=== PATIENT | male | born 1990 | race Caucasian/White ===

== ENCOUNTER → 2019-03-07 | Outpatient (REF) | payer OTHER | LOC: M SFHCPLAZ 17:24 | PROVIDERS: ATTEND Dermatology | DX: D49.2 Neoplasm of unspecified behavior of bone, soft tissue, and skin (principal) ==

== ENCOUNTER → 2019-08-08 | Outpatient (CLI) | payer BC ==
[2019-08-08 20:33] LABS: FREE T4 1.17 NG/DL (0.76-1.46); THYROID STIMULATING HORMONE 11.9 uIU/ML (0.358-3.740)
== END ==
LOC: M WUC 16:50
PROVIDERS: ATTEND Physician Assistant
DX: E03.9 Hypothyroidism, unspecified (principal)

== ENCOUNTER → 2019-09-09 | Outpatient (CLI) | payer BC ==
[2019-09-09 13:37] LABS: FREE T4 1.05 NG/DL (0.76-1.46); THYROID STIMULATING HORMONE 1.84 uIU/ML (0.358-3.740)
[2019-09-11 09:23] LABS: THYROID PEROXIDASE ANTIBODY 571.3 U/ML (<60.0)
== END ==
LOC: M PLALAB 10:51
PROVIDERS: ATTEND Physician Assistant
DX: E03.9 Hypothyroidism, unspecified (principal)

== ENCOUNTER → 2019-09-19 | Outpatient (REF) | payer OTHER | LOC: M LAB REF 12:57 | PROVIDERS: ATTEND Internal Medicine Endocrinology, Diabetes & Metabolism | DX: E04.1 Nontoxic single thyroid nodule (principal); E06.3 Autoimmune thyroiditis ==

== ENCOUNTER → 2019-11-05 | Outpatient (CLI) | payer OTHER ==
[2019-11-05 13:04] LABS: FREE T4 1.13 NG/DL (0.76-1.46); THYROID STIMULATING HORMONE 3.61 uIU/ML (0.358-3.740)
== END ==
LOC: M PLALAB 10:21
PROVIDERS: ATTEND Nurse Practitioner Family
DX: E06.3 Autoimmune thyroiditis (principal)

== ENCOUNTER → 2019-12-06 | Outpatient (CLI) | payer OTHER | LOC: M PLALAB 09:32 | PROVIDERS: ATTEND Allergy & Immunology Allergy | DX: T78.1XXA Other adverse food reactions, not elsewhere classified, initial encounter (principal) ==

== ENCOUNTER → 2020-02-14 | Outpatient (REF) | payer OTHER | LOC: M LAB REF 11:15 | PROVIDERS: ATTEND Urology | DX: Z30.2 Encounter for sterilization (principal) ==

== ENCOUNTER → 2020-03-05 | Outpatient (CLI) | payer OTHER ==
[2020-03-05 14:43] LABS: FREE T4 1.1 NG/DL (0.76-1.46); THYROID STIMULATING HORMONE 3.89 uIU/ML (0.358-3.740)
== END ==
LOC: M PLALAB 12:03
PROVIDERS: ATTEND Nurse Practitioner Family
DX: E06.3 Autoimmune thyroiditis (principal)

== ENCOUNTER → 2020-05-04 | Outpatient (REF) | payer OTHER ==
[2020-05-04 11:34] LABS: SEMEN APPEARANCE OPAQUE (OPAQUE); SEMEN VISCOSITY LIQUID (LIQUID); SEMEN VOLUME 4.2 ml (2.0-5.0); WBC CONCENTRATION <=1 M/ml (<=1 M/ml)
== END ==
LOC: M SMT 11:25
PROVIDERS: ATTEND Urology
DX: Z30.8 Encounter for other contraceptive management (principal)

== ENCOUNTER → 2020-08-25 | Outpatient (CLI) | payer OTHER ==
[2020-08-25 15:01] LABS: FREE T4 0.99 NG/DL (0.76-1.46); THYROID STIMULATING HORMONE 7.09 uIU/ML (0.358-3.740)
== END ==
LOC: M PLALAB 10:52
PROVIDERS: ATTEND Nurse Practitioner Family
DX: E06.3 Autoimmune thyroiditis (principal)

== ENCOUNTER → 2020-11-24 | Outpatient (CLI) | payer OTHER ==
[2020-11-24 19:29] LABS: FREE T4 1.3 NG/DL (0.76-1.46); THYROID STIMULATING HORMONE 0.163 uIU/ML (0.358-3.740)
== END ==
LOC: M PLALAB 15:34
PROVIDERS: ATTEND Internal Medicine Endocrinology, Diabetes & Metabolism
DX: E06.3 Autoimmune thyroiditis (principal)

== ENCOUNTER → 2021-02-26 | Outpatient (CLI) | payer OTHER ==
[2021-02-26 13:55] LABS: FREE T4 1.06 NG/DL (0.76-1.46); THYROID STIMULATING HORMONE 2.02 uIU/ML (0.358-3.740)
== END ==
LOC: M PLALAB 11:08
PROVIDERS: ATTEND Nurse Practitioner Family
DX: E06.3 Autoimmune thyroiditis (principal)

== ENCOUNTER → 2021-04-06 | Outpatient (CLI) | payer BC, OTHER ==
[2021-04-06 14:41] LABS: ESTRADIOL 35.3 PG/ML (<39.8); FOLLICLE STIMULATING HORMONE < 0.3 mIU/mL (1.4-18.1); LUTEINIZING HORMONE < 0.1 mIU/mL (1.5-9.3); PROGESTERONE 0.45 NG/ML (0.28-1.22)
[2021-04-07 18:09] LABS: TESTOSTERONE FREE (DIRECT) 14.6 pg/mL (8.7-25.1)
== END ==
LOC: M PLALAB 10:44
PROVIDERS: ATTEND Obstetrics & Gynecology
DX: F52.0 Hypoactive sexual desire disorder (principal); E29.1 Testicular hypofunction

== ENCOUNTER → 2021-06-03 | Outpatient (CLI) | payer BC, OTHER ==
[2021-06-03 17:31] LABS: ESTRADIOL 57.3 PG/ML (<39.8); FOLLICLE STIMULATING HORMONE < 0.3 mIU/mL (1.4-18.1); LUTEINIZING HORMONE < 0.1 mIU/mL (1.5-9.3); PROGESTERONE 0.35 NG/ML (0.28-1.22)
== END ==
LOC: M PLALAB 15:01
PROVIDERS: ATTEND Obstetrics & Gynecology
DX: F52.0 Hypoactive sexual desire disorder (principal)

== ENCOUNTER → 2021-07-13 | Outpatient (CLI) | payer BC, OTHER ==
[2021-07-13 13:28] LABS: BASO # 0.1 10^3/uL (0.0-0.2); EOS # 0.2 10^3/uL (0.0-0.5); EOS % 4.7 % (0.0-3.0); HEMATOCRIT 53.2 % (42.0-52.0); HEMOGLOBIN 17.9 g/dl (13.5-17.5); LYMPH # 1.4 10^3/uL (1.5-5.0); LYMPH % 27.4 % (24.0-44.0); MEAN CORPUSCULAR HEMOGLOBIN 30.3 pg (27.0-33.0); MEAN CORPUSCULAR HGB CONC 33.6 g/dl (32.0-36.5); MEAN CORPUSCULAR VOLUME 90.2 fl (80.0-96.0); MONO # 0.6 10^3/uL (0.0-0.8); MONO % 11.2 % (2.0-8.0); NEUTROPHILS # 2.7 10^3/uL (1.5-8.5); NEUTROPHILS % 55.5 % (36.0-66.0); PLATELET COUNT, AUTOMATED 205 10^3/uL (150-450); WHITE BLOOD COUNT 4.9 10^3/uL (4.0-10.0)
[2021-07-13 13:58] LABS: CK-MB VALUE MASS 2.1 NG/ML (<3.6); MB/CK RELATIVE INDEX 0.69 (< OR =4)
[2021-07-13 15:22] LABS: BLOOD UREA NITROGEN 16 MG/DL (7-18); CALCIUM LEVEL 9.6 MG/DL (8.5-10.1); CARBON DIOXIDE LEVEL 31 MEQ/L (21-32); CHLORIDE LEVEL 103 MEQ/L (98-107); CREATININE FOR GFR 1.17 MG/DL (0.70-1.30); FREE T4 1.14 NG/DL (0.76-1.46); GLOMERULAR FILTRATION RATE > 60.0 (>60); GLUCOSE, FASTING 88 MG/DL (70-100); POTASSIUM SERUM 4.3 MEQ/L (3.5-5.1); SODIUM LEVEL 138 MEQ/L (136-145)
== END ==
LOC: M PLALAB 10:57
PROVIDERS: ATTEND Family Medicine
DX: R07.89 Other chest pain (principal)

== ENCOUNTER → 2021-08-25 | Outpatient (CLI) | payer BC, OTHER ==
[2021-08-25 17:28] LABS: FREE T4 1.18 NG/DL (0.76-1.46); THYROID STIMULATING HORMONE 2.63 uIU/ML (0.358-3.740)
== END ==
LOC: M PLALAB 13:35
PROVIDERS: ATTEND Nurse Practitioner Family
DX: E06.3 Autoimmune thyroiditis (principal)

== ENCOUNTER → 2021-10-11 | Outpatient (REF) | payer BC, OTHER ==
[2021-10-11 13:49] LABS: ESTRADIOL 51.8 PG/ML (<39.8); FOLLICLE STIMULATING HORMONE 0.4 mIU/mL (1.4-18.1); LUTEINIZING HORMONE 0.2 mIU/mL (1.5-9.3); PROGESTERONE 0.62 NG/ML (0.28-1.22)
[2021-10-12 23:07] LABS: TESTOSTERONE FREE (DIRECT) 28.6 pg/mL (8.7-25.1)
== END ==
LOC: M LABDRWAD 12:38
PROVIDERS: ATTEND Obstetrics & Gynecology
DX: F52.0 Hypoactive sexual desire disorder (principal)

== ENCOUNTER → 2021-10-11 | Outpatient (REF) | payer BC, OTHER ==
[2021-10-11 13:40] LABS: CHOLESTEROL RISK RATIO 2.961 (<5)
== END ==
LOC: M LABDRWAD 12:37
PROVIDERS: ATTEND Family Medicine
DX: Z13.220 Encounter for screening for lipoid disorders (principal)

== ENCOUNTER → 2022-01-20 | Outpatient (CLI) | payer BC, OTHER ==
[2022-01-20 13:10] LABS: ESTRADIOL 27.5 PG/ML (<39.8); FOLLICLE STIMULATING HORMONE 0.7 mIU/mL (1.4-18.1); LUTEINIZING HORMONE 0.3 mIU/mL (1.5-9.3); PROGESTERONE 0.59 NG/ML (0.28-1.22)
== END ==
LOC: M WUC 10:20
PROVIDERS: ATTEND Obstetrics & Gynecology
DX: F52.0 Hypoactive sexual desire disorder (principal); E34.9 Endocrine disorder, unspecified; E29.1 Testicular hypofunction

== ENCOUNTER → 2022-03-07 | Outpatient (CLI) | payer OTHER, BC ==
[2022-03-07 11:10] LABS: FREE T4 1.27 NG/DL (0.76-1.46); THYROID STIMULATING HORMONE 1.58 uIU/ML (0.358-3.740)
== END ==
LOC: M WUC 08:16
PROVIDERS: ATTEND Nurse Practitioner Family
DX: E06.3 Autoimmune thyroiditis (principal)

== ENCOUNTER → 2022-10-31 | Outpatient (REF) | payer BC, OTHER ==
[2022-10-31 15:32] LABS: ALBUMIN 4.1 G/DL (3.2-5.2); ALKALINE PHOSPHATASE 64 U/L (46-116); ALT/SGPT 48 U/L (7.0-40); AST/SGOT 31 U/L (<34); BILIRUBIN,TOTAL 0.9 MG/DL (0.3-1.2); BLOOD UREA NITROGEN 13 MG/DL (9-23); CALCIUM LEVEL 9.5 MG/DL (8.5-10.1); CARBON DIOXIDE LEVEL 30 MMOL/L (20-31); CHLORIDE LEVEL 102 MMOL/L (98-107); CHOLESTEROL LEVEL 155 MG/DL (<200); CHOLESTEROL RISK RATIO 2.76 (<5); CREATININE FOR GFR 1.09 MG/DL (0.70-1.30); GLOMERULAR FILTRATION RATE > 60.0 (>60); GLUCOSE, FASTING 82 MG/DL (60-100); POTASSIUM SERUM 4.5 MMOL/L (3.5-5.1); SODIUM LEVEL 138 MMOL/L (136-145); TOTAL 25(OH) VITAMIN D 32.4 NG/ML (20.0-100.0); TOTAL PROTEIN 6.9 G/DL (5.7-8.2); TRIGLYCERIDES LEVEL 50 MG/DL (<150)
[2022-10-31 15:33] LABS: BASO # 0.1 10^3/uL (0.0-0.2); EOS # 0.4 10^3/uL (0.0-0.5); EOS % 6.7 % (0.0-3.0); HEMATOCRIT 51.8 % (42.0-52.0); LYMPH # 1.1 10^3/uL (1.5-5.0); LYMPH % 17.6 % (24.0-44.0); MEAN CORPUSCULAR HEMOGLOBIN 30.4 pg (27.0-33.0); MEAN CORPUSCULAR HGB CONC 32.8 g/dl (32.0-36.5); MEAN CORPUSCULAR VOLUME 92.7 fl (80.0-96.0); MONO # 0.7 10^3/uL (0.0-0.8); NEUTROPHILS # 3.8 10^3/uL (1.5-8.5); NEUTROPHILS % 63.5 % (36.0-66.0); PLATELET COUNT, AUTOMATED 170 10^3/uL (150-450); RED BLOOD COUNT 5.59 10^6/uL (4.30-6.10)
== END ==
LOC: M LABDRWAD 13:00
PROVIDERS: ATTEND Family Medicine
DX: Z13.29 Encounter for screening for other suspected endocrine disorder (principal); Z13.0 Encounter for screening for diseases of the blood and blood-forming organs and certain disorders involving the immune mechanism; Z13.220 Encounter for screening for lipoid disorders; E06.3 Autoimmune thyroiditis

== ENCOUNTER → 2022-10-31 | Outpatient (REF) | payer BC, OTHER ==
[2022-10-31 15:32] LABS: THYROID STIMULATING HORMONE 1.185 uIU/ML (0.55-4.78)
[2022-10-31 15:33] LABS: FREE T4 1.4 NG/DL (0.89-1.76)
== END ==
LOC: M LABDRWAD 13:02
PROVIDERS: ATTEND Nurse Practitioner Family
DX: E06.3 Autoimmune thyroiditis (principal)

== ENCOUNTER → 2023-04-24 | Outpatient (CLI) | payer BC, OTHER ==
[2023-04-24 14:08] LABS: FOLLICLE STIMULATING HORMONE < 0.3 mIU/ML (1.4-18.1)
[2023-04-24 14:09] LABS: ESTRADIOL 32.5 PG/ML (<39.8); LUTEINIZING HORMONE 0.7 mIU/ML (1.5-9.3)
[2023-04-24 14:27] LABS: PROGESTERONE 0.72 NG/ML (0.28-1.22)
[2023-04-25 23:07] LABS: TESTOSTERONE FREE (DIRECT) 14.3 pg/mL (8.7-25.1)
== END ==
LOC: M PLALAB 11:21
PROVIDERS: ATTEND Obstetrics & Gynecology
DX: F52.0 Hypoactive sexual desire disorder (principal)

== ENCOUNTER → 2023-07-31 | Outpatient (REF) | payer BC, OTHER ==
[2023-07-31 13:26] LABS: BASO % 0.7 % (0.0-1.0); EOS # 0.2 10^3/uL (0.0-0.5); EOS % 4.3 % (0.0-3.0); HEMATOCRIT 51.8 % (42.0-52.0); HEMOGLOBIN 16.9 g/dl (13.5-17.5); LYMPH # 1.1 10^3/uL (1.5-5.0); MEAN CORPUSCULAR HEMOGLOBIN 30.6 pg (27.0-33.0); MEAN CORPUSCULAR HGB CONC 32.6 g/dl (32.0-36.5); MEAN CORPUSCULAR VOLUME 93.8 fl (80.0-96.0); MONO # 0.4 10^3/uL (0.0-0.8); MONO % 9.6 % (2.0-8.0); NEUTROPHILS # 2.7 10^3/uL (1.5-8.5); NEUTROPHILS % 60.9 % (36.0-66.0); PLATELET COUNT, AUTOMATED 182 10^3/uL (150-450); RED BLOOD COUNT 5.52 10^6/uL (4.30-6.10); WHITE BLOOD COUNT 4.4 10^3/uL (4.0-10.0)
[2023-07-31 13:37] LABS: ERYTHROCYTE SEDIMENTATION RATE 10 mm/hr (0-15)
[2023-07-31 13:46] LABS: URIC ACID 5.7 MG/DL (3.7-9.2)
[2023-07-31 13:48] LABS: C REACTIVE PROTEIN QUANTITATIV < 0.40 MG/DL (<1.0)
[2023-07-31 13:49] LABS: ALKALINE PHOSPHATASE 62 U/L (46-116); ALT/SGPT 49 U/L (7.0-40); AST/SGOT 20 U/L (<34); BILIRUBIN,TOTAL 0.6 MG/DL (0.3-1.2); BLOOD UREA NITROGEN 17 MG/DL (9-23); CALCIUM LEVEL 8.9 MG/DL (8.5-10.1); CARBON DIOXIDE LEVEL 30 MMOL/L (20-31); CHLORIDE LEVEL 105 MMOL/L (98-107); CREATININE FOR GFR 1.05 MG/DL (0.70-1.30); GLOMERULAR FILTRATION RATE > 60.0 (>60); GLUCOSE, FASTING 82 MG/DL (60-100); POTASSIUM SERUM 4.5 MMOL/L (3.5-5.1); RHEUMATOID FACTOR QUANT < 3.5 IU/ML (<14); SODIUM LEVEL 139 MMOL/L (136-145); TOTAL PROTEIN 7.4 G/DL (5.7-8.2)
== END ==
LOC: M LABDRWAD 12:34
PROVIDERS: ATTEND Student in an Organized Health Care Education/Training Program
DX: M25.562 Pain in left knee (principal)

== ENCOUNTER → 2023-09-25 | Outpatient (REF) | payer OTHER ==
[2023-09-25 18:48] LABS: FOLLICLE STIMULATING HORMONE 3.5 mIU/ML (1.4-18.1)
[2023-09-25 18:49] LABS: ESTRADIOL 28.7 PG/ML (<39.8)
[2023-09-25 18:52] LABS: PROGESTERONE 0.61 NG/ML (0.28-1.22)
== END ==
LOC: M LABDRWAD 17:01
PROVIDERS: ATTEND Obstetrics & Gynecology
DX: F52.0 Hypoactive sexual desire disorder (principal); E34.9 Endocrine disorder, unspecified; E29.1 Testicular hypofunction

== ENCOUNTER → 2023-10-09 | Outpatient (CLI) | payer BC | LOC: M RAD 15:04 | PROVIDERS: ATTEND Physician Assistant | DX: N50.811 Right testicular pain (principal) ==

== ENCOUNTER → 2025-01-09 | Outpatient (CLI) | payer BC ==
[2025-01-09 14:58] LABS: FREE T4 1.63 NG/DL (0.89-1.76)
== END ==
LOC: M LABDRWAD 09:05
PROVIDERS: ATTEND Nurse Practitioner Family
DX: E06.3 Autoimmune thyroiditis (principal)

== ENCOUNTER → 2025-02-06 | Outpatient (CLI) | payer BC | LOC: M WUC 08:37 | PROVIDERS: ATTEND Nurse Practitioner Family | DX: R07.82 Intercostal pain (principal) ==

== ENCOUNTER 2025-04-03 07:17 | Emergency (ER) | payer BC ==
[~2025-04-03] VITALS: Ht 188 cm; Wt 107.6 kg
[2025-04-03] MEDS ORDERED: LEVO150T7 (07:26)
[2025-04-03] MEDS: KETOROLAC 30 MG/ML 1 ML VIAL IV ONE (07:57)
[2025-04-03 08:12] LABS: BASO # 0.0 10^3/uL (0.0-0.2); BASO % 1.0 % (0.0-1.0); EOS # 0.2 10^3/uL (0.0-0.5); EOS % 5.1 % (0.0-3.0); LYMPH # 1.3 10^3/uL (1.5-5.0); LYMPH % 31.7 % (24.0-44.0); MONO # 0.6 10^3/uL (0.0-0.8); MONO % 13.7 % (2.0-8.0); NEUTROPHILS # 2.0 10^3/uL (1.5-8.5); NEUTROPHILS % 48.3 % (36.0-66.0); PLATELET COUNT, AUTOMATED 181 10^3/uL (150-450)
[2025-04-03 08:34] LABS: CK-MB VALUE MASS 1.8 NG/ML (<3.6)
[2025-04-03 08:35] LABS: CALCIUM LEVEL 9.2 MG/DL (8.5-10.1); CARBON DIOXIDE LEVEL 28 MMOL/L (20-31); CHLORIDE LEVEL 104 MMOL/L (98-107); CREATININE FOR GFR 0.98 MG/DL (0.70-1.30); GLOMERULAR FILTRATION RATE > 90.0 (>60); POTASSIUM SERUM 4.2 MMOL/L (3.5-5.1); SODIUM LEVEL 142 MMOL/L (136-145)
[2025-04-03 08:38] LABS: CPK CREATINE PHOSPHOKINASE 262 U/L (46-171); MB/CK RELATIVE INDEX 0.68 (< OR =4)
[2025-04-03 09:25] LABS: CK-MB VALUE MASS 1.1 NG/ML (<3.6)
[2025-04-03 09:27] LABS: CPK CREATINE PHOSPHOKINASE 233.0 U/L (46-171); MB/CK RELATIVE INDEX 0.47 (< OR =4)
[2025-04-03 09:30] VITALS: BP 131/78; TEMP 97.6; O2SAT 99
== END 2025-04-03 09:43 | disposition home or self-care (01) ==
LOC: M ED 07:17
DX: M94.0 Chondrocostal junction syndrome [Tietze] (principal); R00.1 Bradycardia, unspecified; E05.80 Other thyrotoxicosis without thyrotoxic crisis or storm; F10.10 Alcohol abuse, uncomplicated; Z79.899 Other long term (current) drug therapy
CPT/HCPCS: 71045; 80048; 82550; 82553; 84443; 84484; 85025; 93005; 93041; 94760; 96374; 99285; J1885